=== PATIENT | male | born 1940 | race Caucasian/White ===

== ENCOUNTER → 2016-09-23 | Outpatient (CLI) | payer OTHER ==
[~2016-09-23] VITALS: Ht 175.3 cm; Wt 121.6 kg
[~2016-09-23] MED LIST: ALDACTONE25 MG PO; CETIRIZINE HCL5 MG PO; COREG6.25 MG PO; COUMADIN 1MG TAB1 M1 PO; FLEXERIL PO; GARLIC1000 MG PO; LASIX 40 MG TAB40 M2 PO; LEVEMIR FL100 UNIT/2 SQ; METFORMIN HCL500 MG PO; MOBIC7.5 MG PO; NOVOLOG FL100 UNIT/M SC; OMEPRAZOLE 20 M20 M1 PO; QUINAPRIL HCL10 MG PO; QVAR8.7 G1 IH; SINGULAIR 10 MG10 M1 PO; VENTOLIN HFA 1818 GM INH
--- NOTE | ~2016-09-23 | HPC ---
[facility] [address] [place] [address] PAIN MANAGEMENT CONSULTATION Name: DANNIE BURROUGHS Room #: REG MELI RosasAmbreen#: [id number] Admission: 09/23/16 Attend Phys: Rey Dang MD Discharge: Date of : 39 Report #: [id number] THIS REPORT FOR: //name// CC: Rey Christopher DATE OF SERVICE: 09/23/2016 DATE OF REGISTRATION: 09/23/2016 Followup visit for lumbar radiculopathy. The patient had an epidural injection April of 2016 with a very good response. Pain relief reported to the nurse was 90% for over 2-1/2 months. Pain then gradually returned. Pain is in the low back with radiculopathy on the left. Pain is worse with prolonged sitting. The patient is on Coumadin for DVT and pulmonary embolus. He has been successfully treated for atrial fibrillation with ablation procedure. The patient is also type 2 diabetic on insulin, Levemir, Glucophage. He had some increase in blood sugar following last injection. PHYSICAL EXAMINATION: Pleasant 75-year-old. Blood pressure is 133/75, heart rate is 83. His SaO2 is 94%. Respirations are 20. He walks with antalgic features. He has pain across his low back. Straight leg raising involves the left leg. Pain intensity is increased with radiation noted with this maneuver. There is no numbness or tingling. IMPRESSION: 1. Chronic low back pain with radiculopathy secondary to spondylolisthesis grade 2, L5-S1. 2. Atrial fibrillation. 3. Lumbar spondylosis. 4. Morbid obesity. RECOMMENDATIONS: We will repeat epidural injection under fluoroscopic guidance given his substantial and long duration of response with the initial injection provided in our clinic. DESCRIPTION OF PROCEDURE: He was taken to the fluoroscopic suite for the treatment, placed prone, skin prepped with ChloraPrep. Skin anesthetized over the L5-S1 interspace. A 20-gauge Tuohy epidural needle was advanced easily into the epidural space with loss of resistance. No blood or CSF was aspirated. [address] [place] [address] [place] [address] PAIN MANAGEMENT CONSULTATION Name: DANNIE BURROUGHS Room #: REG MELI Villegas#: [id number] Admission: 09/23/16 Attend Phys: Rey Dang MD Discharge: Date of : 39 Report #: [id number] mL of Omnipaque injected. Spread of dye observed in the epidural space. It was followed by 3 mL of 0.5% lidocaine mixed with 80 mg of triamcinolone. He tolerated the procedure well, was observed for 45 minutes and discharged. Pain has reduced dramatically at discharge. Plan to see him on an as needed basis for epidural injections. By: 1330 [id number] Rey Dang MD /nt
[2016-09-23 10:28] VITALS: BP 143/74
== END | disposition home or self-care (01) ==
LOC: PAIN 06:47
DX: M47.896 Other spondylosis, lumbar region (principal); M43.16 Spondylolisthesis, lumbar region; I82.409 Acute embolism and thrombosis of unspecified deep veins of unspecified lower extremity; G89.29 Other chronic pain; E11.9 Type 2 diabetes mellitus without complications; I48.91 Unspecified atrial fibrillation; E66.01 Morbid (severe) obesity due to excess calories

== ENCOUNTER → 2017-01-15 | Outpatient (CLI) | payer OTHER | LOC: HYPER 07:16 | DX: S51.802A Unspecified open wound of left forearm, initial encounter (principal); S41.102A Unspecified open wound of left upper arm, initial encounter; S81.802A Unspecified open wound, left lower leg, initial encounter; E11.622 Type 2 diabetes mellitus with other skin ulcer; L97.821 Non-pressure chronic ulcer of other part of left lower leg limited to breakdown of skin; E11.40 Type 2 diabetes mellitus with diabetic neuropathy, unspecified; J45.909 Unspecified asthma, uncomplicated; Z86.718 Personal history of other venous thrombosis and embolism; Z79.4 Long term (current) use of insulin; Z79.01 Long term (current) use of anticoagulants; Z72.89 Other problems related to lifestyle; X58.XXXA Exposure to other specified factors, initial encounter; Y93.89 Activity, other specified; Y92.89 Other specified places as the place of occurrence of the external cause; Y99.8 Other external cause status ==

== ENCOUNTER → 2017-01-29 | Outpatient (CLI) | payer OTHER | LOC: HYPER 07:16 | DX: E11.622 Type 2 diabetes mellitus with other skin ulcer (principal); L97.821 Non-pressure chronic ulcer of other part of left lower leg limited to breakdown of skin; S41.112D Laceration without foreign body of left upper arm, subsequent encounter; S81.801D Unspecified open wound, right lower leg, subsequent encounter; E11.40 Type 2 diabetes mellitus with diabetic neuropathy, unspecified; J45.909 Unspecified asthma, uncomplicated; Z79.4 Long term (current) use of insulin; Z86.718 Personal history of other venous thrombosis and embolism; Z79.01 Long term (current) use of anticoagulants; Z72.89 Other problems related to lifestyle; X58.XXXD Exposure to other specified factors, subsequent encounter; Y92.89 Other specified places as the place of occurrence of the external cause; Y99.8 Other external cause status ==

== ENCOUNTER → 2017-02-26 | Outpatient (CLI) | payer OTHER | LOC: HYPER 06:54 | DX: E11.622 Type 2 diabetes mellitus with other skin ulcer (principal); L97.811 Non-pressure chronic ulcer of other part of right lower leg limited to breakdown of skin; L98.491 Non-pressure chronic ulcer of skin of other sites limited to breakdown of skin; J45.909 Unspecified asthma, uncomplicated; E11.40 Type 2 diabetes mellitus with diabetic neuropathy, unspecified; Z79.4 Long term (current) use of insulin; Z79.01 Long term (current) use of anticoagulants; Z86.718 Personal history of other venous thrombosis and embolism; Z72.89 Other problems related to lifestyle ==

== ENCOUNTER → 2017-04-02 | Outpatient (CLI) | payer OTHER ==
[~2017-04-02] VITALS: Ht 172.7 cm; Wt 121.7 kg
--- NOTE | ~2017-04-02 | HPC ---
[facility] [place] [address] PAIN MANAGEMENT CONSULTATION Name: DANNIE BURROUGHS III Room #: REG MELI Bakari#: [id number] Admission: 04/02/17 Attend Phys: Rey Dang MD Discharge: Date of : 39 Report #: [id number] THIS REPORT FOR: //name// CC: Rey Christopher DATE OF SERVICE: 04/02/2017 DATE OF REGISTRATION: 04/02/2017 Followup visit for lumbar radiculopathy. The patient is back today for an epidural injection. He had an excellent response with about 80% pain relief in his back and his legs following the injection performed on 's day of this year. It has been over 6 months. Pain is mostly in his back with weakness and discomfort radiating down into the legs bilaterally. He has multilevel degenerative disease. We discussed the history of his back injury which dates back to his teens and 20s. He fell on his back and had back pain that lasted nearly 3 or 4 years before it finally resolved. Given the fact that he has a spondylolisthesis at L5-S1, it is quite possible that, that injury occurred over 50 years ago. Certainly this is contributing to the nerve root impingement that results in radiculopathy. He also has back pain with standing and back extension, which would be consistent with spondylosis. He has degenerative disk disease noted above. His spondylolisthesis at L4-L5 and L3-L4, all of which I believe were contributing to his overall back pain with radiculopathy. He is diabetic, remains on insulin Levemir and Glucophage. His A1c is running about 8. He understands that following this injection, his blood sugars will be elevated and he may need to make some adjustments in his insulin. He also is on Coumadin for a history of DVT and pulmonary embolism. He has been allowed to discontinue that in anticipation of an injection today. His INR is 1.1. PHYSICAL EXAMINATION: GENERAL: This is a pleasant 76-year-old. He is morbidly obese carrying most of his weight around this midsection. VITAL SIGNS: His BMI is 40.1. Blood pressure is 103/58, pulse is 77, respirations 16, room air oxygen saturation is 97%. MUSCULOSKELETAL: He moves from a sitting to standing position with some difficulty. He has weakness in his lower extremities and is unable to push up easily. He requires his hands to help get him up out of the chair. While standing, he uses a walker because of weakness and instability. He has had some falls. He has tenderness across his low back. He has pain mostly with back extension, flexion is quite comfortable for him using his walker support. Straight leg raising reproduces discomfort bilaterally in both legs, left worse than right. [facility] [address] [place] [address] PAIN MANAGEMENT CONSULTATION Name: DANNIE BURROUGHS [facility] Room #: REG MELI Villgeas#: [id number] Admission: 04/02/17 Attend Phys: Rey Dang MD Discharge: Date of : 39 Report #: [id number] X-rays again show multilevel degenerative disease with an L5-S1 spondylolisthesis nerve root impingement. IMPRESSION: Lumbar radiculopathy. The majority of this is likely related to severe bilateral neural foraminal narrowing at L5-S1, but he also has additional levels as well. RECOMMENDATION: Epidural steroid injection under fluoroscopic guidance. PROCEDURE: The patient was taken to the fluoroscopic suite, placed prone, skin prepped with ChloraPrep. Skin anesthetized left of midline at L5-S1. A 20-gauge Tuohy epidural needle advanced first attempt in the epidural space with loss of resistance. No blood or CSF aspirated. A 1 mL of Omnipaque injected with excellent spread of dye observed in the epidural space followed by 3 mL of 0.5% lidocaine mixed with 80 mg of triamcinolone. He tolerated the procedure well and was observed for 45 minutes and discharged. Followup visit planned in the pain clinic on a p.r.n. basis. No medications ordered for the patient. <ELECTRONICALLY SIGNED> By: Rey Dang MD 04/02/17 1351 [id number] Rey Dang MD /nt
[2017-04-02 09:11] VITALS: BP 103/58
== END | disposition home or self-care (01) ==
LOC: PAIN 06:54
DX: M48.06 Spinal stenosis, lumbar region (principal); M54.16 Radiculopathy, lumbar region; G89.29 Other chronic pain; E11.9 Type 2 diabetes mellitus without complications; E66.01 Morbid (severe) obesity due to excess calories; Z79.01 Long term (current) use of anticoagulants; Z68.41 Body mass index [BMI] 40.0-44.9, adult; Z88.8 Allergy status to other drugs, medicaments and biological substances; Z79.4 Long term (current) use of insulin; Z79.899 Other long term (current) drug therapy; Z98.890 Other specified postprocedural states

== ENCOUNTER → 2017-11-30 | Outpatient (CLI) | payer OTHER ==
[~2017-11-30] VITALS: Ht 172.7 cm; Wt 117.9 kg
--- NOTE | ~2017-11-30 | P ---
[facility] [place] [address] PROCEDURE REPORT Name: DANNIE BURROUGHS III Room #: REG [facility]#: [id number] Admission: 11/30/17 Attend Phys: Syed Cardona MD Discharge: Date of : 39 Report #: [id number] THIS REPORT FOR: //name// CC: Syed Christopher MD DATE OF SERVICE: 11/30/2017 BRIEF HISTORY: The patient is a 77-year-old male, for high risk screening colonoscopy due to previous history of colon polyps. PREOPERATIVE DIAGNOSIS: High risk screening colonoscopy. POSTOPERATIVE DIAGNOSES: 1. Multiple colon polyps. 2. Moderately severe sigmoid diverticulosis coli. 3. Small internal hemorrhoids. 4. Mild melanosis coli. MEDICATIONS: Deep sedation with propofol per Anesthesia. SPECIMEN: 1. Cecal polyp. 2. Proximal ascending colon polyps x 2. 3. Transverse colon polyp. 4. Polyp at 70 cm. 5. Polyp at 50 cm. 6. Polyp at 20 cm. ESTIMATED BLOOD LOSS: 3 mL. PROCEDURE: Colonoscopy to cecum and terminal ileum with snare polypectomy and biopsy. FINDINGS: Prior to propofol sedation, procedure of colonoscopy discussed with the patient as well as potential risks and its complications. He indicates he understands and desires to proceed. DESCRIPTION OF PROCEDURE: The patient in left lateral decubitus position, digital examination was completed which revealed no abnormalities. Subsequently, the Superfocus video colonoscope was introduced in the rectum, advanced under direct vision to the cecum. The cecum was identified by the ileocecal valve and appendiceal orifice. I was able to visualize the distal segment of terminal ileum, which was inspected and noted to be unremarkable. At that point, scope was withdrawn and careful circumferential views were obtained. [facility] [address] [place] [address] PROCEDURE REPORT Name: MANJEETDANNIE CECELIA MINA Room #: REG [facility] Ralph.#: [id number] Admission: 11/30/17 Attend Phys: Syed Cardona MD Discharge: Date of : 39 Report #: [id number] Upon slow withdrawal of the scope, the prep was good. In the cecum, a flat 5-6 mm polyp was seen and removed by cold biopsy forceps. Scope was further withdrawn. In the proximal ascending colon, a 6-7 mm sessile polypoid lesion was seen, was gauged in polypectomy snare. However, it was somewhat difficult to remove and upon recovery it felt hard and firm. This may be a small submucosal lesion rather than a mucosal polyp. In addition, at the same level a diminutive polyp was seen and removed by biopsy. As we withdrew the scope further, no additional abnormalities were noted until the distal transverse colon was reached at which point a diminutive polyp was seen and removed by biopsy. At 70 cm another diminutive polyp was seen and removed by biopsy. At 50 cm another diminutive polyp was seen and removed by biopsy. Scope was further withdrawn and another diminutive polyp was seen and removed by biopsy at 20 cm. Additional findings included moderately severe diverticular disease without endoscopic evidence of diverticulitis. In addition, there was a pattern of mild melanosis coli throughout the entire colon. The scope was withdrawn in the rectum and no abnormalities were seen. Upon retroflexion, small internal hemorrhoids were seen. Scope was withdrawn. The patient tolerated the procedure well. CONDITION OF THE PATIENT UPON DISCHARGE: Following the procedure the patient was drowsy, arousable, conversant and will be discharged home when fully ambulatory. INSTRUCTIONS TO THE PATIENT AND FAMILY AT THE TIME OF DISCHARGE: We will follow up on the path of the polyps. However, at this point, suggest he return in 3 years for high risk screening colonoscopy. Suggest high fiber diet for his diverticular disease. Also, due to melanosis he is to avoid stimulatory laxatives. He will return to care of Dr. Isael Christopher and return to see me as needed. Last colonoscopy was 5 years ago. Withdrawal time from cecum was 28 minutes 22 seconds. <ELECTRONICALLY SIGNED> By: Syed Cardona MD 11/30/17 1712 0932 1200 Syed Cardona MD /nt
[2017-11-30 07:57] LABS: INR 1.1; PROTIME 11.2 Seconds (9.3-11.4)
== END | disposition home or self-care (01) ==
LOC: GI 06:48
PROVIDERS: Specialist
DX: Z12.11 Encounter for screening for malignant neoplasm of colon (principal); K51.40 Inflammatory polyps of colon without complications; D12.3 Benign neoplasm of transverse colon; D12.5 Benign neoplasm of sigmoid colon; Z86.010 Personal history of colon polyps; K57.30 Diverticulosis of large intestine without perforation or abscess without bleeding; K63.89 Other specified diseases of intestine; K64.8 Other hemorrhoids; Z98.890 Other specified postprocedural states; K21.9 Gastro-esophageal reflux disease without esophagitis; E11.9 Type 2 diabetes mellitus without complications; J45.909 Unspecified asthma, uncomplicated; Z79.01 Long term (current) use of anticoagulants; G47.30 Sleep apnea, unspecified; I10 Essential (primary) hypertension; I48.0 Paroxysmal atrial fibrillation
CPT/HCPCS: 62110; 62900

== ENCOUNTER → 2018-02-02 | Outpatient (CLI) | payer OTHER ==
[~2018-02-02] VITALS: Ht 172.7 cm; Wt 120.7 kg
--- NOTE | ~2018-02-02 | HPC ---
[facility] [place] [address] [address] [place] [address] PAIN MANAGEMENT CONSULTATION Name: DANNIE BURROUGHS CECELIA MINA Room #: REG MELI Rosas.#: [id number] Admission: 02/02/18 Attend Phys: Cecelia Escalona DO Discharge: Date of : 39 Report #: [id number] THIS REPORT FOR: //name// CC: Cecelia Christopher MD DATE OF SERVICE: 02/02/2018 REFERRING PHYSICIAN: Isael Christopher M.D. CHIEF COMPLAINT: Low back pain, left lower extremity pain and paresthesias. HISTORY OF PRESENT ILLNESS: As you know, the patient is a pleasant 77-year-old male who returns today in followup visit for next in a series of epidural injections. The patient is now placing pain score of around 3-4/10. States the pain has progressively worsened. No inciting injury or trauma. He typically receives his epidural injections from Dr. Dang but due to scheduling conflicts, the patient was placed on my service today to undergo the procedure in hopes of improving pain. The patient states that he is on Coumadin but has discontinued the medication. His INR is 1.1 today in preparation for the procedure. ALLERGIES: PROPOXYPHENE and ACETAMINOPHEN. CURRENT MEDICATIONS: Albuterol, cyclobenzaprine, quinapril, carvedilol, furosemide, montelukast sodium, omeprazole, spironolactone, garlic supplementation, Zyrtec, insulin and warfarin. SOCIAL HISTORY: The patient denies tobacco, alcohol or IV or illicit drug use. He is retired. He is unaccompanied today. IMAGING DATA: No new imaging available. PQRS: The patient has no evidence of osteoarthritis. He has had a traumatic injury to his left shoulder. He is morbidly obese with stable weight. He is not a fall risk, but does use an ambulatory device. He is on anticoagulant but has stopped in preparation for today's procedure. He is treated for hypertension. He is at a low risk for opioid abuse. PHYSICAL EXAMINATION: VITAL SIGNS: Blood pressure 129/73, pulse 81, respiratory rate 20 and unlabored. The patient is 100% on room air. Height 5 feet 8 inches tall, weight 266.2 pounds and BMI calculated 40.5. GENERAL: Well-developed, well-nourished and well-hydrated, class 3, morbidly obese 77-year-old male. He appears his stated age. [place] [address] PAIN MANAGEMENT CONSULTATION Name: DANNIE BURROUGHS III Room #: REG [facility]#: [id number] Admission: 02/02/18 Attend Phys: Cecelia Escalona DO Discharge: Date of : 39 Report #: [id number] score at 3-10. HEENT: Normocephalic and atraumatic. Pupils equal, round and reactive to light. Extraocular muscles are intact. EXTREMITIES: Show no clubbing, no cyanosis and no edema. MUSCULOSKELETAL: Seated straight leg raising negative. Supine straight leg raising positive on the left. Chika's test negative. Gait antalgic favoring left lower extremity over right. Muscle bulk and tone appears equal and symmetrical. ASSESSMENT: 1. Symptomatic lumbar radiculopathy. 2. Displacement of lumbar intervertebral disk with radiculopathy. 3. Lumbosacral spondylosis with radiculopathy. 4. Neural foraminal stenosis of the lumbar spine. 5. Facet arthropathy of the lumbar spine. 6. Chronic intractable pain. PLAN: 1. The patient returns today in followup visit to undergo next in the series of epidural injections. The patient has done very well with previous epidural injections, returning today hoping to receive similar benefit. The patient has been advised of the risks and the benefits of a lumbar epidural injection. These risks include but are not necessarily limited to bleeding, bruising, infection, worsening pain, no relief of pain, also risk of temporary or permanent muscle weakness, temporary or permanent nerve damage, possible paralysis and . The patient states understood and wished to proceed. 2. No medication changes made at today's visit. The patient to continue current medical therapy as previously prescribed. 3. We will see the patient back in followup visit on an as needed basis for next in the series of epidural injections. PROCEDURE NOTE DESCRIPTION OF PROCEDURE: L5-S1 left paramedian epidural steroid injection under fluoroscopic guidance. After obtaining written consent, the patient was taken back to fluoroscopy suite, placed in prone position with pillow under abdomen to decrease lumbar lordosis. Skin overlying lumbosacral area then prepped and draped in aseptic fashion. The lumbar intervertebral spaces were identified by AP fluoroscopy. Skin and subcutaneous tissue overlying target site of injection was anesthetized with 3 mL of 1% lidocaine. A 20-gauge 4-1/2 inch Tuohy needle advanced under fluoroscopic guidance towards the epidural space using a left paramedian approach. Epidural space identified using loss of resistance to air technique. After negative aspiration for heme [facility] [address] [place] [address] PAIN MANAGEMENT CONSULTATION Name: DANNIE BURROUGHS III Room #: REG Anthony Villegas#: [id number] Admission: 02/02/18 Attend Phys: Cecelia Escalona DO Discharge: Date of : 39 Report #: [id number] or cerebrospinal fluid, 1 mL of Omnipaque was injected. Lumbar epidurogram was confirmed using both AP and lateral fluoroscopy. After negative aspiration for heme or cerebrospinal fluid, 5 mL of a solution containing 2 mL 40 mg per mL, 80 mg total triamcinolone, 3 mL lidocaine 1% injected slowly. Needle retracted correction, flushed with 1 mL of 1% lidocaine and removed. Sterile bandage placed over injection site. No new motor deficits present in lower extremity following procedure. The patient tolerated procedure well, carefully escorted to recovery room in stable condition. No apparent complication. After meeting discharge criteria, the patient discharged home. <ELECTRONICALLY SIGNED> By: Cecelia Escalona DO 02/03/18 0709 [id number] [id number] Cecelia Escalona DO /nt
[2018-02-02 09:04] VITALS: BP 129/73
== END | disposition home or self-care (01) ==
LOC: PAIN 07:32
DX: M51.16 Intervertebral disc disorders with radiculopathy, lumbar region (principal); M47.27 Other spondylosis with radiculopathy, lumbosacral region; M48.061 Spinal stenosis, lumbar region without neurogenic claudication; M46.96 Unspecified inflammatory spondylopathy, lumbar region; G89.29 Other chronic pain; Z88.8 Allergy status to other drugs, medicaments and biological substances; Z79.899 Other long term (current) drug therapy; E66.01 Morbid (severe) obesity due to excess calories; Z68.41 Body mass index [BMI] 40.0-44.9, adult; Z79.891 Long term (current) use of opiate analgesic; Z79.01 Long term (current) use of anticoagulants

== ENCOUNTER → 2018-05-11 | Outpatient (CLI) | payer OTHER ==
[~2018-05-11] VITALS: Ht 172.7 cm; Wt 122.5 kg
[~2018-05-11] MED LIST changes: +WELCHOL 625 MG625 M1 PO
--- NOTE | ~2018-05-11 | HPC ---
[facility] [place] [address] PAIN MANAGEMENT CONSULTATION Name: DANNIE BURROUGHS LEOPOLDO Room #: REG [facility] SureshAmbreenAram.#: [id number] Admission: 05/11/18 Attend Phys: Manolo Escalona DO Discharge: Date of : 39 Report #: [id number] THIS REPORT FOR: //name// CC: Manolo Christopher MD DATE OF SERVICE: 05/11/2018 CHIEF COMPLAINT: Low back pain, left lower extremity pain with paresthesias. HISTORY OF PRESENT ILLNESS: As you know, the patient is a pleasant 77-year-old male followed by my partner, Dr. Rey Dang for lumbar radicular symptoms. He returns today in followup visit requesting to undergo next in the series of epidural injections to address 2-3/10 pain. The patient has subsequently discontinued his Coumadin in preparation for today's procedure. Unfortunately, scheduling conflicts made it impossible for the patient to follow up with Dr. Dang. He returns today to undergo next in the series of epidural injections with plans to follow up with Dr. Dang at next visit. He has an INR of 1.1 today wishing to undergo epidural injection. ALLERGIES: PROPOXYPHENE AND ACETAMINOPHEN. CURRENT MEDICATIONS: Albuterol, cyclobenzaprine, quinapril, carvedilol, furosemide, montelukast sodium, omeprazole, spironolactone, garlic supplementation, Zyrtec, insulin, warfarin. SOCIAL HISTORY: The patient denies tobacco, alcohol, IV or illicit drug use. He is retired, retired years ago, unaccompanied today. IMAGING: None available. PQRS: The patient reports no evidence of osteoarthritis. He denies rheumatoid arthritis. He indicates pain intensity of 2-3/10. He is a fall risk, but has not had fallen in the last 3 months. He is on anticoagulant in the form of Coumadin. He is treated for hypertension. He has not been on opiates for an extended period of time. He has a low opioid assessment risk. Functional pain impact score 28/70, mild to moderate. PHYSICAL EXAMINATION: VITAL SIGNS: Blood pressure 116/74, pulse 88, respiratory rate 20 and unlabored. The patient is 97% on room air. Height 5 feet 8 inches tall, weight 270 pounds, BMI calculated 41.1. GENERAL: Well-developed, well-nourished, well-hydrated, class 3, morbidly obese 77-year-old male who appears his stated age. He is placing pain score today 3-4/10. [place] [address] PAIN MANAGEMENT CONSULTATION Name: DANNIE BURROUGHS [facility] #: [facility] [id number] Admission: 05/11/18 Attend Phys: Manolo Escalona DO Discharge: Date of : 39 Report #: [id number] HEENT: Normocephalic, atraumatic. Pupils equal, round, reactive to light. Extraocular muscles are intact. Sclerae nonicteric, without injection. EXTREMITIES: Show no clubbing, no cyanosis, no edema. MUSCULOSKELETAL: Lower extremity strength is symmetrical 5/5, intact to light touch from L1 through S2 dermatomes. Seated straight leg raising negative. Supine straight leg raising positive on the left. Gait antalgic favoring left lower extremity over right. ASSESSMENT: 1. Symptomatic lumbar radiculopathy. 2. Displacement of lumbar intervertebral disk with radiculopathy. 3. Lumbosacral spondylosis with radiculopathy. 4. Neuroforaminal stenosis of lumbar spine. 5. Facet arthropathy of lumbar spine. 6. Chronic intractable pain. PLAN: 1. The patient has returned today in followup visit requesting to undergo next in the series of epidural injections. He received excellent benefit with previous epidural injection reporting 95% improvement in overall pain lasting for approximately 3 months. He returns today in followup visit without inciting injury or trauma requesting to undergo next in the series of epidural injections. He has been advised the risks and benefits, states understood and wished to proceed. 2. No medication changes made at today's visit. The patient will continue current medical therapy as previously prescribed. 3. The patient will follow up with his pain physician, Dr. Rey Dang for further evaluation and treatment and medication management if necessary. <ELECTRONICALLY SIGNED> By: Manolo Escalona DO 05/12/18 0848 1237 51 Manolo Escalona DO /nt
--- NOTE | ~2018-05-11 | P ---
[facility] [place] [address] PROCEDURE REPORT Name: DANNIE BURROUGHS III Room #: REG [facility].#: [id number] Admission: 05/11/18 Attend Phys: Manolo Escalona DO Discharge: Date of : 39 Report #: [id number] THIS REPORT FOR: //name// CC: Manolo Christopher MD DATE OF SERVICE: 05/11/2018 DESCRIPTION OF PROCEDURE: L5-S1 left paramedian epidural steroid injection under fluoroscopic guidance. After obtaining written consent, the patient was taken back to fluoroscopy suite, placed in prone position with pillow under abdomen to decrease lumbar lordosis. Skin overlying lumbosacral area then prepped and draped in aseptic fashion. The L5-S1 vertebral interspace identified by AP fluoroscopy. Skin and subcutaneous tissue overlying target site of injection was anesthetized with 3 mL of 1% lidocaine. A 20-gauge 4-1/2-inch Tuohy needle advanced under fluoroscopic guidance towards the epidural space using left paramedian approach. Epidural space identified using loss of resistance to air technique. After negative aspiration for heme or cerebrospinal fluid, 1 mL of Omnipaque was injected. Lumbar epidurogram confirmed using both AP and lateral fluoroscopy. After negative aspiration for heme or cerebrospinal fluid, 5 mL of a solution containing 2 mL 40 mg per mL, 80 mg total triamcinolone and 3 mL of lidocaine 1% injected slowly. Needle retracted retirement, flushed with 1 mL of 1% lidocaine and removed. Sterile bandage placed over injection site. No new motor deficits present in lower extremity following procedure. The patient tolerated procedure well, carefully escorted to recovery room in stable condition. No apparent complications. After meeting discharge criteria, the patient discharged home. <ELECTRONICALLY SIGNED> By: Manolo Escalona DO 05/12/18 0848 1237 1954 Manolo Escalona DO /nt
[2018-05-11 09:45] VITALS: BP 116/74
== END | disposition home or self-care (01) ==
LOC: PAIN 06:53
DX: M51.16 Intervertebral disc disorders with radiculopathy, lumbar region (principal); M47.27 Other spondylosis with radiculopathy, lumbosacral region; M99.73 Connective tissue and disc stenosis of intervertebral foramina of lumbar region; M12.88 Other specific arthropathies, not elsewhere classified, other specified site; G89.29 Other chronic pain; I10 Essential (primary) hypertension; E66.01 Morbid (severe) obesity due to excess calories; Z68.41 Body mass index [BMI] 40.0-44.9, adult; Z88.8 Allergy status to other drugs, medicaments and biological substances; Z79.899 Other long term (current) drug therapy; Z79.01 Long term (current) use of anticoagulants; Z79.4 Long term (current) use of insulin

== ENCOUNTER → 2018-06-14 | Outpatient (CLI) | payer OTHER | LOC: HYPER 06:52 | DX: S80.11XA Contusion of right lower leg, initial encounter (principal); S80.12XA Contusion of left lower leg, initial encounter; E11.40 Type 2 diabetes mellitus with diabetic neuropathy, unspecified; J45.909 Unspecified asthma, uncomplicated; Z79.4 Long term (current) use of insulin; Z79.01 Long term (current) use of anticoagulants; Z86.718 Personal history of other venous thrombosis and embolism; X58.XXXA Exposure to other specified factors, initial encounter; Y93.89 Activity, other specified; Y92.89 Other specified places as the place of occurrence of the external cause; Y99.8 Other external cause status ==

== ENCOUNTER → 2018-06-25 | Outpatient (CLI) | payer OTHER | LOC: HYPER 07:55 | DX: E11.622 Type 2 diabetes mellitus with other skin ulcer (principal); L97.811 Non-pressure chronic ulcer of other part of right lower leg limited to breakdown of skin; E11.40 Type 2 diabetes mellitus with diabetic neuropathy, unspecified; J45.909 Unspecified asthma, uncomplicated; Z86.718 Personal history of other venous thrombosis and embolism; Z79.4 Long term (current) use of insulin; Z79.01 Long term (current) use of anticoagulants ==

== ENCOUNTER → 2018-07-12 | Outpatient (CLI) | payer OTHER | LOC: HYPER 07:05 | DX: E11.622 Type 2 diabetes mellitus with other skin ulcer (principal); L97.811 Non-pressure chronic ulcer of other part of right lower leg limited to breakdown of skin; E11.40 Type 2 diabetes mellitus with diabetic neuropathy, unspecified; J45.909 Unspecified asthma, uncomplicated; Z79.4 Long term (current) use of insulin; Z79.01 Long term (current) use of anticoagulants; Z86.718 Personal history of other venous thrombosis and embolism ==

== ENCOUNTER → 2018-07-30 | Outpatient (CLI) | payer OTHER | LOC: HYPER 07:44 | DX: E11.622 Type 2 diabetes mellitus with other skin ulcer (principal); L97.811 Non-pressure chronic ulcer of other part of right lower leg limited to breakdown of skin; E11.40 Type 2 diabetes mellitus with diabetic neuropathy, unspecified; J45.909 Unspecified asthma, uncomplicated; Z79.4 Long term (current) use of insulin; Z79.01 Long term (current) use of anticoagulants; Z86.718 Personal history of other venous thrombosis and embolism ==

== ENCOUNTER → 2018-08-31 | Outpatient (CLI) | payer OTHER ==
[~2018-08-31] VITALS: Ht 172.7 cm; Wt 123.8 kg
--- NOTE | ~2018-08-31 | HPC ---
[facility] [address] [place] [address] PAIN MANAGEMENT CONSULTATION Name: DANNIE BURROUGHS CECELIA MINA [id number] Admission: 08/31/18 Attend Phys: Cecelia Escalona DO Discharge: Date of : 39 Report #: [id number] THIS REPORT FOR: //name// CC: Cecelia Christopher MD DATE OF SERVICE: 08/31/2018 REFERRING PHYSICIAN: Isael Christopher M.D. CHIEF COMPLAINT: Low back pain, left lower extremity pain and paresthesias. HISTORY OF PRESENT ILLNESS: As you know, the patient is a pleasant 77-year-old male who returns today in followup visit to undergo next in the series of epidural injections under fluoroscopic guidance. The patient reports good efficacy with the previous lumbar epidural injection reporting 90% improvement in overall pain lasting for nearly 3 months. He returns today in followup visit with pain level of around 2-3/10, requesting to undergo next in the series of epidural injections to build on success of previous intervention. The patient denies injury, trauma or any changes in medical history since our last visit. ALLERGIES: PROPOXYPHENE and ACETAMINOPHEN. CURRENT MEDICATIONS: Albuterol, cyclobenzaprine, quinapril, carvedilol, furosemide, montelukast sodium, furosemide, warfarin, cyclobenzaprine, Breo Ellipta, Levemir, NovoLog and ProAir inhaler. SOCIAL HISTORY: The patient denies tobacco, alcohol, IV or illicit drug use. He is retired, unaccompanied today. IMAGING DATA: No new imaging available. PQRS: The patient reports no evidence of osteoarthritis and no rheumatoid arthritis. He is placing pain intensity 2-3/10. He is a fall risk but has not had a fall in the last 3 months. He is on warfarin and has discontinued in preparation for today's procedure. He is treated for hypertension. He is not on chronic opioids. He has a low assessment for opioid addiction. He is placing pain impact tool at 24/70 indicating [id number] interference of daily activities secondary to pain. PHYSICAL EXAMINATION: VITAL SIGNS: Blood pressure 114/61, pulse 80 and respiratory rate 20 and unlabored. The patient is 98% on room air. Height 5 feet 8 inches tall, weight 273.0 pounds and BMI calculated 41.5. [facility] [address] [place] [address] PAIN MANAGEMENT CONSULTATION Name: DANNIE BURROUGHS III Room #: REG [facility]#: [id number] Admission: 08/31/18 Attend Phys: Cecelia Escalona DO Discharge: Date of : 39 Report #: [id number] GENERAL: Well-developed, well-nourished and well-hydrated, class 3, morbidly obese 77-year-old male appearing stated age, placing current pain score at 2-3/10. HEENT: Normocephalic and atraumatic. Pupils equal, round and reactive to light. EXTREMITIES: Show no clubbing and no cyanosis. There is 1+ nonpitting lower extremity edema. MUSCULOSKELETAL: Seated straight leg raise negative. Supine straight leg raising positive left. Chika's test negative. Modified Gaenslen's positive for axial low back pain. Ankle clonus negative. Gait antalgic favoring left lower extremity. The patient is utilizing a roller walker for ambulation. ASSESSMENT: 1. Symptomatic lumbar radiculopathy. 2. Displacement of lumbar intervertebral disk with radiculopathy. 3. Lumbosacral spondylosis with radiculopathy. 4. Foraminal stenosis of the lumbar spine. 5. Facet arthropathy of the lumbar spine. 6. Chronic intractable pain. PLAN: 1. The patient returns today in followup visit having noted near 100% improvement in overall pain lasting for 3 months with previous epidural injection. He returns today in followup visit having discontinued his Coumadin with an INR of 1.1 in preparation for today's epidural injection. The patient has been advised of the risks and benefits of this procedure, states understood and did wish to proceed. 2. No medication changes made at today's visit. The patient to continue current medical therapy as previously prescribed. 3. We will see the patient back in followup visit on an as needed basis for the next in the series of lumbar epidural injections. PROCEDURE NOTE DESCRIPTION OF PROCEDURE: L5-S1 left paramedian epidural steroid injection under fluoroscopic guidance. After obtaining written consent, the patient was taken back to fluoroscopy suite, placed in prone position with pillow under abdomen to decrease lumbar lordosis. Skin overlying the lumbosacral area then prepped and draped in aseptic fashion. The L5-S1 vertebral interspace identified by AP fluoroscopy. Skin and subcutaneous tissue overlying target site of injection was anesthetized with 3 mL of 1% lidocaine. A 20-gauge 4-1/2 inch Tuohy needle advanced under fluoroscopic guidance towards the epidural space using left paramedian approach. Epidural space identified [address] [address] PAIN MANAGEMENT CONSULTATION Name: DANNIE BURROUGHS III Room #: REG [facility].#: [id number] Admission: 08/31/18 Attend Phys: Cecelia Escalona DO Discharge: Date of : 39 Report #: [id number] using loss of resistance to air technique. After negative aspiration for heme or cerebrospinal fluid, 1 mL of Omnipaque injected. Lumbar epidurogram confirmed using both AP and lateral fluoroscopy. After negative aspiration for heme or cerebrospinal fluid, 5 mL of a solution containing 2 mL 40 mg per mL, 80 mg total triamcinolone, 3 mL lidocaine 1% injected slowly. Needle retracted fci, flushed with 1 mL of 1% lidocaine and then removed. Sterile bandage placed over injection site. No new motor deficits present in the lower extremities following procedure. The patient tolerated procedure well, carefully escorted to recovery room in stable condition. No apparent complications. After meeting discharge criteria, the patient discharged home. By: [id number] Cecelia Escalona DO /nt
[2018-08-31 10:18] VITALS: BP 114/61
--- NOTE | 2018-08-31 10:29 | NUR ---
Pain Clinic Assessment: 1. History of Osteoarthritis: SPINE History of Rheumatoid Arthritis: Not Applicable 2. Height: 5 ft. 8 in. 172.7 cm. Weight: 273.0 lb. oz. 123.832 kg. Patient's BMI: 41.5 3. Vital Signs: BP: 114/61 Pulse: 80 Resp: 20 Temp: 02 Sat: 98 ECG Mon: 4. Pain Intensity: 2-3 5. Fall Risk: Dizziness: N Needs help standing or walking: Y Fallen in the last 3 months: N Fall risk comments: 6. Patient on Blood Thinner: Warfarin (Coumadin) 7. History of Hypertension: Y 8. Opioid Therapy greater than 6 weeks: N Opiate Contract Signed: 9. Risk Assessment Tool Provided: Opioid Risk Tool 10. Functional Assessment Tool: 24 11. Recreational Drug Use: Never Drug Type: Tobacco Use: Never Smoker Tobacco Type: Amount or Packs/day: How Many Years: Alcohol Use: Yes Frequency: Special Occasions Quant:
== END | disposition home or self-care (01) ==
LOC: HYPER 08-23 06:53 → PAIN 06:49
DX: M51.16 Intervertebral disc disorders with radiculopathy, lumbar region (principal); M47.27 Other spondylosis with radiculopathy, lumbosacral region; M48.061 Spinal stenosis, lumbar region without neurogenic claudication; M46.96 Unspecified inflammatory spondylopathy, lumbar region; G89.29 Other chronic pain; I10 Essential (primary) hypertension; Z88.8 Allergy status to other drugs, medicaments and biological substances; Z79.899 Other long term (current) drug therapy; Z79.01 Long term (current) use of anticoagulants; Z98.890 Other specified postprocedural states

== ENCOUNTER → 2019-03-01 | Outpatient (CLI) | payer OTHER ==
[~2019-03-01] VITALS: Ht 172.7 cm; Wt 123.2 kg
[2019-03-01 10:39] VITALS: BP 138/69
--- NOTE | 2019-03-01 10:52 | NUR ---
Pain Clinic Assessment: 1. History of Osteoarthritis: SPINE History of Rheumatoid Arthritis: Not Applicable 2. Height: 5 ft. 8 in. 172.7 cm. Weight: 271.6 lb. oz. 123.197 kg. Patient's BMI: 41.3 3. Vital Signs: BP: 138/69 Pulse: 65 Resp: 20 Temp: 02 Sat: 100 ECG Mon: 4. Pain Intensity: 0-2 5. Fall Risk: Dizziness: N Needs help standing or walking: Y Fallen in the last 3 months: N Fall risk comments: 6. Patient on Blood Thinner: Warfarin (Coumadin) 7. History of Hypertension: Y 8. Opioid Therapy greater than 6 weeks: N Opiate Contract Signed: 9. Risk Assessment Tool Provided: Opioid Risk Tool 10. Functional Assessment Tool: 24 11. Recreational Drug Use: Never Drug Type: Tobacco Use: Never Smoker Tobacco Type: Amount or Packs/day: How Many Years: Alcohol Use: No Frequency: Quant:
--- NOTE | 2019-03-01 16:57 | P ---
[facility] [place] [address] PROCEDURE REPORT Name: MANJEETDANNIEALBERTO RAI III Room #: REG [facility].#: [id number] Admission: 03/01/19 ������������������ Attend Phys: Manolo Escalona DO Discharge: ������������������ Date of : 39 Report #: [id number] THIS REPORT FOR: //name// CC: Manolo Christopher MD DATE OF SERVICE: 03/01/2019 DESCRIPTION OF PROCEDURE: L5-S1 left paramedian epidural steroid injection under fluoroscopic guidance. After obtaining written consent, the patient was taken back to fluoroscopy suite, placed in prone position with pillow under abdomen to decrease lumbar lordosis. Skin overlying lumbosacral area then prepped and draped in aseptic fashion. The L5-S1 vertebral interspace identified by AP fluoroscopy. Skin and subcutaneous tissue overlying target site of injection anesthetized with 3 mL of 1% lidocaine. A 20-gauge 4-1/2-inch Tuohy needle advanced under fluoroscopic guidance towards the epidural space using a left paramedian approach. Epidural space identified using loss of resistance to air technique. After negative aspiration for heme or cerebrospinal fluid, 1 mL of Omnipaque injected. Lumbar epidurogram confirmed using both AP and lateral fluoroscopy. After negative aspiration for heme or cerebrospinal fluid, 5 mL of a solution containing 2 mL 40 mg per mL, 80 mg total triamcinolone, 3 mL lidocaine 1% injected slowly. Needle then retracted approximately half way, flushed with 1 mL of 1% lidocaine and then removed. Sterile bandage placed over injection site. No new motor deficits present in lower extremities following procedure. The patient tolerated procedure well, carefully escorted to recovery in stable condition. No apparent complications. After meeting discharge criteria, the patient discharged home. ��������������������������������������������� <ELECTRONICALLY SIGNED> ���������������������������������������� By: Manolo Escalona DO ��������������������������������������������� 03/01/19 1657 [id number] Manolo Escalona DO /nt
--- NOTE | 2019-03-01 16:57 | HPC ---
[facility] [address] [place] [address] PAIN MANAGEMENT CONSULTATION Name: DANNIE BURROUGHS CECELIA MINA [facility] [id number] Admission: 03/01/19 ������������������ Attend Phys: Cecelia Escalona DO Discharge: ������������������ Date of : 39 Report #: [id number] THIS REPORT FOR: //name// CC: Cecelia Christopher MD DATE OF SERVICE: 03/01/2019 CHIEF COMPLAINT: Low back pain, left lower extremity pain with paresthesias. HISTORY OF PRESENT ILLNESS: As you know, the patient is a very pleasant 78-year-old male who returns today in followup visit having discontinued his Coumadin in preparation for the next in the series of lumbar epidural injections. The patient reports good efficacy with previous epidural injections, most recent provided 95% improvement in overall pain lasting for over five months and a slow and progressive return of symptoms. He returns today in followup visit, describing pain 0-2/10. States pain is aching, sharp, numbness and tingling sensation; exacerbated with lying down; improves with medications, sitting in a recliner and epidural injections. He returns today with an INR of 1.1 to undergo next in the series of lumbar epidural injections to address lumbar radicular symptoms. ALLERGIES: PROPOXYPHENE. CURRENT MEDICATIONS: See extensive list in chart. SOCIAL HISTORY: The patient denies tobacco, alcohol, IV or illicit drug use. He is retired, unaccompanied today. IMAGING: No new imaging available. PQRS: The patient has osteoarthritic changes of the lumbar spine. No rheumatoid arthritis. He is placing pain intensity at 2/10. He is a fall risk, but has not had a fall in the last three months. He does use a roller walker for ambulation. He is on blood thinner in the form of Coumadin, but has discontinued it for today's procedure with an INR of 1.1. He is treated for hypertension. He is not on opioids. He has a low opioid addiction potential based on our assessment tool. He is placing pain impact at 24/70, [id number] interference of daily activities secondary to pain. PHYSICAL EXAMINATION: VITAL SIGNS: Blood pressure 138/69, pulse is 65, respiratory rate 20 and unlabored. The patient is 100% on room air. Height 5 feet 8 inches tall, weight 271.6 pounds, BMI calculated 41.3. GENERAL: Well-developed, well-nourished, well-hydrated, class 3, [place] [address] PAIN MANAGEMENT CONSULTATION Name: DANNIE BURROUGHS III Room #: REG [facility]#: [id number] Admission: 03/01/19 ������������������ Attend Phys: Cecelia Escalona DO Discharge: ������������������ Date of : 39 Report #: [id number] 78-year-old male. Pain is rated at 0-2/10. HEENT: Normocephalic, atraumatic. Pupils equal, round, reactive to light. Extraocular muscles are intact. EXTREMITIES: Show no clubbing, no cyanosis, and no edema. MUSCULOSKELETAL: Seated straight leg raising remains negative. Supine straight leg raising positive left. Gait is antalgic favoring left lower extremity over right. Muscle bulk and tone appears symmetrical in comparing left lower extremity over right. He is utilizing a roller walker for ambulation. Pain is elicited with standing from seated position. Ankle clonus negative. Babinski is negative. ASSESSMENT: 1. Symptomatic lumbar radiculopathy. 2. Displacement of lumbar intervertebral disk with radiculopathy. 3. Lumbosacral spondylosis with radiculopathy. 4. Foraminal stenosis of lumbar spine. 5. Facet arthropathy of the lumbar spine. 6. Chronic intractable pain. PLAN: 1. The patient returns today in followup visit having discontinued his Coumadin in preparation for a lumbar epidural injection. INR today is 1.1, well within the safe range per DOUG's guidelines in regards to treatment for neuraxial conditions. DOUG guidelines indicate INR has to be below 1.4 to safely provide this injection. He has been advised of the risks and benefits of a lumbar epidural injection, states he understood and wished to proceed. 2. No medication changes made at today's visit. The patient will restart his Coumadin today and continue Coumadin as prior prescribed. 3. We will see the patient back in followup visit on as needed basis for possible next in a series of lumbar epidural injections. ��������������������������������������������� <ELECTRONICALLY SIGNED> ���������������������������������������� By: Cecelia Escalona DO ��������������������������������������������� 03/01/19 1657 [id number] Cecelia Escalona DO /nt
== END | disposition home or self-care (01) ==
LOC: PAIN 06:58
DX: M51.16 Intervertebral disc disorders with radiculopathy, lumbar region (principal); M47.27 Other spondylosis with radiculopathy, lumbosacral region; M48.061 Spinal stenosis, lumbar region without neurogenic claudication; M47.26 Other spondylosis with radiculopathy, lumbar region; G89.29 Other chronic pain; I10 Essential (primary) hypertension; Z88.8 Allergy status to other drugs, medicaments and biological substances; Z79.01 Long term (current) use of anticoagulants; Z98.890 Other specified postprocedural states; Z79.899 Other long term (current) drug therapy

== ENCOUNTER → 2019-07-19 | Outpatient (CLI) | payer OTHER ==
[~2019-07-19] VITALS: Ht 172.7 cm; Wt 123.7 kg
[~2019-07-19] MED LIST changes: +FLONASE 0.05%50 MCG NARES
[2019-07-19 11:15] VITALS: BP 111/71
--- NOTE | 2019-07-19 11:33 | NUR ---
Pain Clinic Assessment: 1. History of Osteoarthritis: SPINE History of Rheumatoid Arthritis: Not Applicable 2. Height: 5 ft. 8 in. 172.7 cm. Weight: 272.6 lb. oz. 123.651 kg. Patient's BMI: 41.5 3. Vital Signs: BP: 111/71 Pulse: 72 Resp: 18 Temp: 02 Sat: 100 ECG Mon: 4. Pain Intensity: 7-8-WHEN FLARING 5. Fall Risk: Dizziness: N Needs help standing or walking: Y Fallen in the last 3 months: N Fall risk comments: 6. Patient on Blood Thinner: None 7. History of Hypertension: Y 8. Opioid Therapy greater than 6 weeks: N Opiate Contract Signed: 9. Risk Assessment Tool Provided: Opioid Risk Tool 10. Functional Assessment Tool: 24 11. Recreational Drug Use: Never Drug Type: Tobacco Use: Never Smoker Tobacco Type: Amount or Packs/day: How Many Years: Alcohol Use: No Frequency: Quant:
--- NOTE | 2019-07-20 12:55 | HPC ---
[facility] [address] [place] [address] PAIN MANAGEMENT CONSULTATION Name: DANNIE BURROUGHS III [id number] Admission: 07/19/19 Attend Phys: Manolo Escalona DO Discharge: Date of : 39 Report #: [id number] THIS REPORT FOR: //name// CC: Manolo Christopher MD DATE OF SERVICE: 07/19/2019 REFERRING PHYSICIAN: Isael Christopher MD CHIEF COMPLAINT: Low back pain, left lower extremity pain with paresthesias. HISTORY OF PRESENT ILLNESS: As you know, the patient is a very pleasant 78-year-old male, returning in followup visit to undergo next in the series of lumbar epidural injections. He is placing his current pain anywhere from 7-8/10. The patient denies any new injury, trauma or any changes in medical history since our last visit. He returns today to undergo this epidural injection as he has noted excellent benefit with prior procedures. He states that the previous epidural injection given in February provided about 95% improvement in overall pain. ALLERGIES: PROPOXYPHENE. CURRENT MEDICATIONS: See extensive list in chart. SOCIAL HISTORY: The patient denies tobacco, alcohol, IV or illicit drug use. He is retired, retired years ago, unaccompanied today. IMAGING: No new imaging available. PQRS: The patient has arthritic changes of the lumbar spine, bilateral hips, no rheumatoid arthritis. He is placing current pain intensity at 7-8/10. He is a fall risk and utilizes a roller walker for ambulation. He has not had a fall in the last 3 months. He reports he is not on blood thinners. He is treated for hypertension. He is not on any chronic opioids, has a low opioid addiction potential. Pain impact score 24/70, indicating [id number] interference of daily activities secondary to pain. PHYSICAL EXAMINATION: VITAL SIGNS: Blood pressure 111/71, pulse 72, respiratory rate 18 and unlabored. The patient is 100% on room air. Height 5 feet 8 inches tall, weight 272.6 pounds, BMI calculated 41.5. GENERAL: Well-developed, well-nourished, well-hydrated, excessively morbidly obese 78-year-old male, appearing stated age, pain is rated today 7-8/10. HEENT: Normocephalic, atraumatic. Pupils equal, round, reactive to light. [facility] [address] [place] [address] PAIN MANAGEMENT CONSULTATION Name: DANNIE BURROUGHS III Room #: REG [facility] Ralph.#: [id number] Admission: 07/19/19 Attend Phys: Manolo Escalona DO Discharge: Date of : 39 Report #: [id number] EXTREMITIES: Show no clubbing, no cyanosis, and no edema. MUSCULOSKELETAL: Lower extremity strength equal and symmetrical 5/5. There does appear to be some weakness secondary to deconditioning. Seated straight leg raising negative. Supine straight leg raising positive on the left. Gait is antalgic, favoring left lower extremity over right. Muscle bulk and tone appears symmetrical in comparing left lower extremity over right. ASSESSMENT: 1. Symptomatic lumbar radiculopathy. 2. Displacement of lumbar intervertebral disk with radiculopathy. 3. Lumbosacral spondylosis with radiculopathy. 4. Foraminal stenosis of lumbar spine. 5. Facet arthropathy of the lumbar spine. 6. Chronic intractable pain. PLAN: 1. The patient returns today in followup visit, requesting to undergo a lumbar epidural injection under fluoroscopic guidance. He has done very well with previous epidural injections, hopeful to see similar improvement today. Most recent epidural injection gave 95% improvement in overall pain lasting until just recently where he has had a slow and progressive return of symptoms. He returns today to undergo lumbar epidural injection under fluoroscopic guidance in hopes of addressing lumbar radicular symptoms. The patient has been advised risks and benefits of a lumbar epidural injection. These risks include but are not necessarily limited to bleeding, bruising, infection, worsening pain, no relief of pain, also risk of temporary or permanent muscle weakness, temporary or permanent nerve damage, possible paralysis, post-dural puncture headache and . The patient states understood and wished to proceed. 2. No medication changes made at today's visit. The patient will continue current medical therapy as previously prescribed. 3. We will see the patient back in followup visit on an as needed basis for possible next in the series of lumbar epidural injections under fluoroscopic guidance. PROCEDURE NOTE DESCRIPTION OF PROCEDURE: L5-S1 parasagittal epidural steroid injection under fluoroscopic guidance. After obtaining written consent, the patient was taken back to fluoroscopy suite, placed in prone position with pillow under abdomen to decrease lumbar lordosis. Skin overlying lumbosacral area then prepped and draped in aseptic fashion. The L5-S1 vertebral interspace identified by AP fluoroscopy. Skin and subcutaneous tissue overlying target site of injection anesthetized with 3 mL of 1% lidocaine. [address] [address] PAIN MANAGEMENT CONSULTATION Name: DANNIE BURROUGHS III Room #: [facility]#: [id number] Admission: 07/19/19 Attend Phys: Manolo Escalona DO Discharge: Date of : 39 Report #: [id number] A 20-gauge 4-1/2 inch Tuohy needle advanced under fluoroscopic guidance towards the epidural space using a right parasagittal approach. Epidural space identified using loss of resistance to air technique. After negative aspiration for heme or cerebrospinal fluid, 1 mL of Omnipaque was injected. A lumbar epidurogram was confirmed using both AP and lateral fluoroscopy. After negative aspiration for heme or cerebrospinal fluid, 5 mL of a solution containing 2 mL 40 mg per mL, 80 mg total triamcinolone along with 3 mL lidocaine 1% injected slowly. Needle retracted fci, flushed with 1 mL of 1% lidocaine and then removed. Sterile bandage placed over injection site. No new motor deficits present in the lower extremity following procedure. The patient tolerated procedure well, carefully escorted to recovery room in stable condition. No apparent complications. After meeting discharge criteria, the patient discharged home. <ELECTRONICALLY SIGNED> By: Manolo Escalona DO 07/20/19 [id number] Manolo Escalona DO /nt
== END | disposition home or self-care (01) ==
LOC: PAIN 06:50
DX: M51.16 Intervertebral disc disorders with radiculopathy, lumbar region (principal); M47.27 Other spondylosis with radiculopathy, lumbosacral region; M47.26 Other spondylosis with radiculopathy, lumbar region; M48.061 Spinal stenosis, lumbar region without neurogenic claudication; G89.29 Other chronic pain; Z88.8 Allergy status to other drugs, medicaments and biological substances; Z98.890 Other specified postprocedural states; Z79.899 Other long term (current) drug therapy

== ENCOUNTER → 2019-10-25 | Outpatient (CLI) | payer OTHER ==
[~2019-10-25] VITALS: Ht 172.7 cm; Wt 126.0 kg
[~2019-10-25] MED LIST changes: -ALDACTONE25 MG PO; +PROAIR HFA8.5 GM INH; +SPIRONOLACTONE25 M1 PO; +SUPER THERAVIT1 EACH PO; -VENTOLIN HFA 1818 GM INH; +VITAMIN D250 MCG PO
[2019-10-25 08:36] VITALS: BP 117/67
--- NOTE | 2019-10-25 09:02 | NUR ---
Pain Clinic Assessment: 1. History of Osteoarthritis: SPINE History of Rheumatoid Arthritis: Not Applicable 2. Height: 5 ft. 8 in. 172.7 cm. Weight: 277.8 lb. oz. 126.010 kg. Patient's BMI: 42.2 3. Vital Signs: BP: 117/67 Pulse: 75 Resp: 16 Temp: 02 Sat: 98 ECG Mon: 4. Pain Intensity: 8-9-WHEN FLARING 5. Fall Risk: Dizziness: N Needs help standing or walking: Y Fallen in the last 3 months: N Fall risk comments: 6. Patient on Blood Thinner: None 7. History of Hypertension: Y 8. Opioid Therapy greater than 6 weeks: N Opiate Contract Signed: 9. Risk Assessment Tool Provided: Opioid Risk Tool 10. Functional Assessment Tool: 24 11. Recreational Drug Use: Never Drug Type: Tobacco Use: Never Smoker Tobacco Type: Amount or Packs/day: How Many Years: Alcohol Use: No Frequency: Quant:
--- NOTE | 2019-10-25 15:46 | HPC ---
[facility] [address] [place] [address] PAIN MANAGEMENT CONSULTATION Name: DANNIE BURROUGHS CECELIA MINA Room #: REG [facility].#: [id number] Admission: 10/25/19 Attend Phys: Cecelia Escalona DO Discharge: Date of : 38 Report #: [id number] THIS REPORT FOR: cc: Isael Christopher Steven F. DO Johnson, James E. DO ~ DATE OF SERVICE: 10/25/2019 CHIEF COMPLAINT: Low back pain, left lower extremity pain with paresthesias. HISTORY OF PRESENT ILLNESS: As you know, the patient is extremely pleasant 78-year-old male who has returned today in followup visit to undergo next in the series of lumbar epidural injections under fluoroscopic guidance. The patient reports the previous epidural injection gave 90-100% improvement in overall pain. Unfortunately, his symptoms have begun to return without inciting injury or trauma. He returns today to undergo next in the series of epidural injections. He reports no new injury or trauma that may have led to symptom reoccurrence. He indicates the pain begins slowly and progresses over a period of time, typical for his lumbar radiculopathy. He returns today for next in the series of lumbar epidural injections. ALLERGIES: PROPOXYPHENE. CURRENT MEDICATIONS: Vitamin D2, multivitamin, fluticasone, Welchol, Zyrtec, garlic, spironolactone, omeprazole, montelukast sodium, furosemide, carvedilol, quinapril, cyclobenzaprine, albuterol, insulin. SOCIAL HISTORY: The patient denies tobacco, alcohol, IV or illicit drug use. He is retired, retired years ago, unaccompanied today. IMAGING: No new imaging available. 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 He is placing pain intensity today 8-9/10. He is a fall risk, but has not had a fall in last 3 months. He does use a roller walker for ambulation and balance. He is not on blood thinners, but is treated for hypertension. He is not on chronic opioids and has a low opioid addiction potential. Pain impact is 24/70 indicating [id number] interference of daily activities secondary to pain. PHYSICAL EXAMINATION: VITAL SIGNS: Blood pressure 117/67, pulse 75, respiratory rate 16 and unlabored. The patient is 98% on room air. Height 5 feet 8 inches tall, weight 277.8 pounds, BMI calculated at 42.2. [place] [address] PAIN MANAGEMENT CONSULTATION Name: DANNIE BURROUGHS [id number] Admission: 10/25/19 Attend Phys: Cecelia Escalona DO Discharge: Date of : 38 Report #: [id number] GENERAL: Well-developed, well-nourished, well-hydrated, morbidly obese 78-year-old male, appears stated age, in no acute distress, awake, alert and oriented x 3. Current pain score is rated at 8-9/10. HEENT: Normocephalic, atraumatic. Pupils equal, round, reactive to light. NEUROLOGIC: Speech fluent. The patient deemed a good historian. EXTREMITIES: Show no clubbing, no cyanosis, no edema. There is noted, scarring of the skin overlying the bilateral shins. MUSCULOSKELETAL: Lower extremity strength is symmetrical, but deconditioned. Seated straight leg raising negative. Supine straight leg raising remains positive left. Gait is antalgic favoring left lower extremity over right. Muscle bulk and tone appears symmetrical in comparing left lower extremity to right. ASSESSMENT: 1. Symptomatic lumbar radiculopathy. 2. Spinal stenosis of lumbar spine. 3. Displacement of lumbar intervertebral disk with radiculopathy. 4. Lumbosacral spondylosis with radiculopathy. 5. Foraminal stenosis of the lumbar spine. 6. Facet arthropathy of the lumbar spine. 7. Chronic intractable pain. PLAN: 1. The patient returns today in followup visit requesting to undergo lumbar epidural injection under fluoroscopic guidance to address recurrent lumbar radicular symptoms. The patient reports pain today at level of 8-9/10. The patient denies new injury or trauma that may have led to symptom reoccurrence. He is very pleased with response to the previous epidural injection, gaining nearly 100% improvement in overall pain. He returns today in followup visit to undergo next in the series. The patient has been advised risks and benefits of the procedure, states understood and wished to proceed. 2. No medication changes made at today's visit. The patient will continue current medical therapy as previously prescribed. 3. We will see the patient back in followup visit on an as needed basis for possible next in the series of lumbar epidural injections. PROCEDURE NOTE DESCRIPTION OF PROCEDURE: L5-S1 parasagittal epidural steroid injection under fluoroscopic guidance. After obtaining written consent, the patient was taken back to fluoroscopy suite, placed in prone position with pillow under abdomen to decrease lumbar lordosis. Skin overlying the lumbosacral area then prepped and draped in aseptic fashion. L5-S1 vertebral interspace identified by AP fluoroscopy. Skin and subcutaneous tissue overlying target site injection anesthetized with [address] [address] PAIN MANAGEMENT CONSULTATION Name: DANNIE BURROUGHS LEOP[place]DO Room #: REG [facility]#: [id number] Admission: 10/25/19 Attend Phys: Cecelia Escalona DO Discharge: Date of : 38 Report #: [id number] of 1% lidocaine. A 20-gauge, 4-1/2 inch Tuohy needle advanced under fluoroscopic guidance towards the epidural space using a parasagittal approach. Epidural space identified using loss of resistance to air technique. After negative aspiration for heme or cerebrospinal fluid, 1 mL of Omnipaque injected. Lumbar epidurogram confirmed using both AP and lateral fluoroscopy. After negative aspiration for heme or cerebrospinal fluid, 5 mL of a solution containing 2 mL 40 mg per mL, 80 mg total triamcinolone along with 3 mL of lidocaine 1% injected slowly. Needle retracted care home, flushed with 1 mL of 1% lidocaine and then removed. Sterile bandage placed over injection site. There were no new motor deficits present in the lower extremities following procedure. The patient tolerated the procedure well, carefully escorted to recovery room in stable condition. No apparent complications. After meeting discharge criteria, the patient discharged home. <ELECTRONICALLY SIGNED> By: Cecelia Escalona DO 10/25/19 [id number] Cecelia Escalona, DO /nt
== END | disposition home or self-care (01) ==
LOC: PAIN 06:42
DX: M51.16 Intervertebral disc disorders with radiculopathy, lumbar region (principal); M48.061 Spinal stenosis, lumbar region without neurogenic claudication; M47.27 Other spondylosis with radiculopathy, lumbosacral region; M47.26 Other spondylosis with radiculopathy, lumbar region; G89.29 Other chronic pain; I10 Essential (primary) hypertension; M19.90 Unspecified osteoarthritis, unspecified site; Z98.890 Other specified postprocedural states; Z79.899 Other long term (current) drug therapy; Z88.8 Allergy status to other drugs, medicaments and biological substances